=== PATIENT | male | born 1960 ===

== ENCOUNTER → 2024-08-08 | Day surgery (SDC) | payer OTHER ==
[~2024-08-08] VITALS: Ht 170.1 cm; Wt 112.0 kg
[~2024-08-08] MED LIST: ACETAMINOPHEN 100 ML IV ONE; ACETAMINOPHEN500 M4 PO; ASPIRIN ADULT L81 M1 PO; COREG12.5 M1 PO; Dexamethasone Sodium Phospha 4 MG/ML VIAL IV ONE; HYDROmorphONE Hydrochloride 0.5 MG/0.5 ML SYRINGE IV PRN; HYDROmorphONE Hydrochloride 0.5 MG/0.5 ML SYRINGE ONE; Ketorolac Tromethamine 30 MG/ML VIAL IV ONE; LOSARTAN POTAS100 M1 PO; Lactated Ringer's Solution 1,000 ML IV ONE; Lactated Ringer's Solution 1,000 ML IV SCH; Lidocaine Hydrochloride 2% 5 ML SDV IM ONE; MAGNESIUM250 M2 PO; Midazolam Hydrochloride 2 MG/2 ML VIAL IV ONE; Ondansetron Hydrochloride 4 MG/2 ML VIAL IV ONE; PROPOFOL 200 MG/20 ML VIAL IV ONE; Phenylephrine Hydrochloride 1 MG/10 ML SYRINGE IV ONE; ROCURONIUM BROMIDE 50 MG/5 ML SYRINGE IV ONE; ROSUVASTATIN CA20 MG PO; SEVOFLURANE 250 ML BOT INH ONE; SODIUM CHLORIDE 0.9% 500 ML IV ONE; SUGAMMADEX SODIUM 200 MG/2 ML VIAL IV ONE; TRAMADOL HCL50 MG PO; VIBRA-TAB100 MG PO; VITAMIN B COMP1 EAC1 PO; VITAMIN C1000 M5 PO; VITAMIN D-40010 MCG PO; Vancomycin Hydrochloride 1,000 MG VIAL ONE; XARELTO10 MG PO; ZINC50 M4 PO; ceFAZolin sodium/sodium chlor 20 ML IV ONE; ePHEDrine Sulfate 25 MG/5 ML SYRINGE IV ONE; fentaNYL CITRATE 100 MCG/2 ML VIAL IV ONE
[2024-08-08 08:36] VITALS: BP 127/68
[2024-08-08 12:18] VITALS: BP 117/72
[2024-08-08 12:33] VITALS: BP 114/72
[2024-08-08 12:48] VITALS: BP 124/61
[2024-08-08 13:03] VITALS: BP 137/74
[2024-08-08 13:18] VITALS: BP 128/80
== END | disposition home or self-care (01) ==
LOC: SDC 08-06 08:00
PROVIDERS: ATTEND Podiatrist
DX: S86.011A Strain of right Achilles tendon, initial encounter (principal); F10.90 Alcohol use, unspecified, uncomplicated; Z87.891 Personal history of nicotine dependence; Z95.818 Presence of other cardiac implants and grafts; Z98.890 Other specified postprocedural states; Z88.1 Allergy status to other antibiotic agents; Z79.899 Other long term (current) drug therapy; X58.XXXA Exposure to other specified factors, initial encounter; Y93.89 Activity, other specified; Y92.89 Other specified places as the place of occurrence of the external cause; Y99.8 Other external cause status